=== PATIENT | male | born 2005 | race Two or more races ===

== ENCOUNTER 2024-10-18 12:57 | Emergency (ER) | payer MEDICAID, SELFPAY ==
[2024-10-18 12:59] VITALS: BMI 27.3
--- NOTE | 2024-10-18 13:01 | PC.NURSE ---
[facility] # [id number].
[2024-10-18 13:43] VITALS: BP 152/100; PULSE 104; RESP 18; TEMP 36.9; O2SAT 98
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
== END 2024-10-18 16:25 | disposition home or self-care (01) ==
PROVIDERS: Emergency Provider Emergency Medicine
DX: S39.92XA Unspecified injury of lower back, initial encounter (principal); V89.2XXA Person injured in unspecified motor-vehicle accident, traffic, initial encounter; Y92.410 Unspecified street and highway as the place of occurrence of the external cause
CPT/HCPCS: 72100; 99283